=== PATIENT | male | born 1955 | race Caucasian/White ===

== ENCOUNTER 2022-07-07 10:23 | Emergency (ER) | payer MEDICARE, SELFPAY ==
[2022-07-07 10:31] VITALS: BP 159/80; PULSE 56; RESP 16; TEMP 36.6; O2SAT 99
--- NOTE | 2022-07-07 11:25 | ED.EYEPROB ---
HPI - Eye Problem General Chief complaint: Eye Problems Stated complaint: eye irritation and periorbital swelling Time Seen by Provider: 07/07/22 10:43 History of Present Illness HPI Narrative: 66-year-old male presenting to the emergency department for evaluation of left eye irritation. Patient states that he was using some chemicals to clean out the drains on Sunday but does not suspect that he directly splashed anything in his eye. Patient states that he did rub his eye extensively prior to going to bed and woke up on with a matted eye. Patient suspects that he may have had some chemicals on his hand. Patient denies any change in vision. Patient denies any eye pain. Patient does report a foreign body sensation of the left eye. Related Data Allergies Allergy/AdvReac Type Severity Reaction Status Date / Time No Known Allergies Allergy Verified 07/07/22 11:34 Review of Systems Review of Systems: CONSTITUTIONAL: Denies fever, chills, or sweats. EYES: See HPI ENT: Denies rhinorrhea, congestion, sore throat, or otalgia. CARDIOVASCULAR: Denies chest pain, palpitations, or edema. RESPIRATORY: Denies cough or dyspnea. GASTROINTESTINAL: Denies abdominal pain, nausea, vomiting, or diarrhea. GENITOURINARY: Denies dysuria or hematuria. SKIN: Denies rash or itching. MUSCULOSKELETAL: Denies back pain, joint pain, or myalgia. NEUROLOGIC: Denies headache, numbness, or weakness. Exam Narrative: APPEARANCE: Well appearing, no pain, no distress, well-nourished. HEAD: normocephalic, atraumatic. EYES: Left eye erythema. Mild fluorescein uptake over the cornea. No significant corneal defect. Normal fundus exam. Visual weaver intact. No reported change in vision. No foreign body visualized. No pain with movement of the eye. No double vision. No tenderness to palpation around the eye. NOSE: Normal no drainage EARS:TMS clear with good light reflex. RESPIRATORY: Airway patent, respirations nonlabored. Clear to auscultation bilaterally, no rales, rhonchi, wheezing. NEURO: Alert. Cranial nerves II through XII intact. SKIN: Mild skin edema of the upper lid of the left eye. No significant erythema. PSYCHIATRIC: Normal affect/mood. Course Course Emergency Course: Patient was encouraged to have close follow-up with ophthalmology. Patient will be treated for possible corneal abrasion or corneal irritation. Differential diagnosis does include periorbital cellulitis, orbital cellulitis, conjunctival foreign body, corneal abrasion, corneal irritation. With no change in vision, normal exam with no tenderness to palpation and with some minor fluorescein uptake a cardioversion is the most likely etiology at this point. Patient was however encouraged of close follow-up with ophthalmology. Patient was updated on signs and symptoms to be aware of. All questions and concerns were addressed. Vital Signs Vital signs: Vital Signs Temperature 97.8 F 07/07/22 10:31 Pulse Rate 56 L 07/07/22 10:31 Respiratory Rate 16 07/07/22 10:31 Blood Pressure 159/80 H 07/07/22 10:31 Pulse Oximetry 99 07/07/22 10:31 Oxygen Delivery Room Air 07/07/22 10:31 Temperature 97.8 F 07/07/22 10:31 Pulse Rate 56 L 07/07/22 10:31 Respiratory Rate 16 07/07/22 10:31 Blood Pressure 159/80 H 07/07/22 10:31 Pulse Oximetry 99 07/07/22 10:31 Oxygen Delivery Room Air 07/07/22 10:31 Discharge Plan Discharge Clinical Impression: Corneal abrasion Patient Disposition: Home, Self-Care Condition: Stable Instructions: Antibiotic Form, Corneal Abrasion (ED) Additional Instructions: Antibiotic ointment as directed. Have close follow-up with ophthalmology. If you have any worsening symptoms then please call or return to the emergency room. Prescriptions: New erythromycin 5 mg/gram (0.5 %) ointment 0.5 inch EACH EYE TID Qty: 3.5 0RF Follow-up/Referrals: [facility] [Outside] E[place],Henrik Linder
[2022-07-07] MEDS: ERYTHROMYCIN OPHTH OINTMENT 1 GM TUBE 1 APPLIC LEFT EYE (11:35)
== END 2022-07-07 11:44 | disposition home or self-care (01) ==
PROVIDERS: Emergency Provider Emergency Medicine; PCP Internal Medicine
DX: S05.02XA Injury of conjunctiva and corneal abrasion without foreign body, left eye, initial encounter (principal); X58.XXXA Exposure to other specified factors, initial encounter
CPT/HCPCS: 99283; A9270